=== PATIENT | male | born 1960 | race African-American/Black ===

== ENCOUNTER 2023-10-27 01:53 | Emergency (ER) | payer OTHER ==
[~2023-10-27] VITALS: Ht 182.9 cm; Wt 81.6 kg
[2023-10-27] MEDS ORDERED: PREG50CA PO (03:14)
[2023-10-27] MEDS ORDERED: PREG75CA PO (03:17)
[2023-10-27] MEDS ORDERED: ACETAMINOPHEN ES 500 MG TABLET ONE (04:11)
[2023-10-27] MEDS ORDERED: PREGABALIN 25 MG CAPSULE ONE (04:11)
[2023-10-27] MEDS: ACETAMINOPHEN ES 500 MG TABLET PO ONE (04:16)
[2023-10-27] MEDS: PREGABALIN 25 MG CAPSULE PO SCH (04:17)
[2023-10-27 04:23] VITALS: BP 131/89; TEMP 98; O2SAT 100
== END 2023-10-27 04:20 | disposition home or self-care (01) ==
LOC: ER 01:59
DX: K40.90 Unilateral inguinal hernia, without obstruction or gangrene, not specified as recurrent (principal); J45.909 Unspecified asthma, uncomplicated; Z79.899 Other long term (current) drug therapy
CPT/HCPCS: A4606; A4663; A9150